=== PATIENT | male | born 1985 | race Caucasian/White ===

== ENCOUNTER 2016-09-24 16:01 | Emergency (ER) | payer OTHER ==
[~2016-09-24] VITALS: Ht 175.3 cm; Wt 117.0 kg
[~2016-09-24 16:01] MED LIST: HYDR2.5C37 TOP; OMEP20CA9 PO; RANI150T3 PO
[2016-09-24 16:04] VITALS: TEMP 36.7
[2016-09-24] MEDS ORDERED: HYDROmorphone INJ 1 MG/ML SYR IV STA (16:41)
[2016-09-24] MEDS ORDERED: SODIUM CHLORIDE 0.9% 1000ML 1,000 ML IV STA (16:41)
[2016-09-24] MEDS ORDERED: ONDANSETRON INJ 2 MG/ML 2 ML VIAL IV STA (16:41)
[2016-09-24 16:49] VITALS: Ht 175.3 cm; Wt 117.0 kg
[2016-09-24 16:52] LABS: BASO % 0.1 %; BASO ABS # 0.01 K/uL (0-0.2); COMPLETE YES; HEMATOCRIT 40.1 % (42-52); IG% 0.2 %; LYMPH % 31.4 %; LYMPH ABS # 2.57 K/uL (1.2-3.4); MEAN CELL VOLUME 88.1 fL (80-100); MEAN CORPUSCULAR HEMOGLOBIN 31.9 pg (25-34); MEAN CORPUSCULAR HGB CONC 36.2 g/dl (32-36); MONO % 6.8 %; NEUT % 60.5 %; PLATELET COUNT 214 K/uL (130-400); RED BLOOD COUNT 4.55 M/uL (4.7-6.1); WHITE BLOOD COUNT 8.18 K/uL (4.8-10.8)
[2016-09-24 17:01] LABS: BUN/CREATININE RATIO 11.8 (10-20); CALCIUM 8.6 mg/dl (8.5-10.1); CREATININE 1.1 mg/dl (0.60-1.40)
[2016-09-24 17:03] LABS: ALB/GLOB RATIO 1.2 (0.9-2)
[2016-09-24 17:09] LABS: ISTAT CREATININE 1.1 mg/dl (0.6-1.3); ISTAT HEMOGLOBIN 13.9 g/dl (14.0-18.0); ISTAT IONIZED CALCIUM 1.15 mmol/l (1.12-1.32)
[2016-09-24 17:10] VITALS: O2SAT 98
[2016-09-24] MEDS ORDERED: OPTIRAY 320 IV PRN (17:15)
--- NOTE | 2016-09-24 17:16 | EMERGENCY ROOM VISIT NOTE ---
History Report prepared by Heidy: Noa Rizzo Under the Supervision of: Dr. Luis M Lazcano M.D. First contact with patient: 16:10 Chief Complaint: SYNCOPE (NEAR SYNCOPE) Stated Complaint: HEADACHE, DIZZY, NEAR SYNCOPE Nursing Triage Summary: Pt took ibuprofen around 1500 and developed burning/tingling in b/l arms. Pt then went to the bathroom, and reports things went black and fuzzy. Pt is unsure if he passed out. He was able to call 911 but does not remember doing so. Pt also reports intermittent cramps in back. Had foot surgery in july. Denies CP. States SOB comes and goes. Stopped taking baby ASA 2 weeks ago. 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 The patient states that today he has been experiencing pulsating cramps across his upper back. He took ibuprofen for the pain. 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 He had a hot/cold sensation and states that "I could feel my heart beat in my neck." He went to the bathroom and experienced some tunnel vision and states that "everything started to go black. " The patient yelled for his daughter, who called 911. The patient states that he does not remember what happened while he was waiting for the ambulance, but he knows that he was talking to someone on the phone. He states that any movement exacerbates his back pain. He rates his pain as a 7/10. He denies any history of back problems. The patient had surgery on his left foot on 08/01/16 and is currently in a walking boot. 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 A total of 10 systems reviewed and were otherwise negative. Past Medical & Surgical Medical Problems: (1) Asthma (2) Bronchitis (3) GERD (gastroesophageal reflux disease) (4) Hemorrhoids Surgical Problems: (1) Knee surgery Family History No pertinent history stated. Social History Smoking Status: Former Smoker Alcohol Use: none Drug Use: none Marital Status: Housing Status: lives with family Occupation Status: employed Current/Historical Medications Scheduled Omeprazole (Prilosec), 20 MG PO DAILY Ranitidine Hcl (Zantac), 150 MG PO DAILY Sucralfate (Carafate), 1 GM PO TIDM Scheduled PRN Oxycodone/Acetaminophen 5MG/325MG (Percocet 5MG/325MG), 1-2 TAB PO Q4H PRN for Pain Allergies Coded Allergies: Sulfamethoxazole w/Trimethoprim (Unverified Adverse Reaction, Intermediate , Facial Flushing/Headache, 11/30/15) Pt requested never to be placed on again Uncoded Allergies: HAMPSTERS (Allergy, Unknown, severe anaphylaxis as child, 07/22/14) Physical Exam Vital Signs Date Time Temp Pulse Resp B/P Pulse Ox O2 Delivery O2 Flow Rate FiO2 09/24/16 18:26 64 17 138/78 97 09/24/16 18:00 64 17 138/78 97 Room Air 09/24/16 17:10 98 Room Air 09/24/16 17:05 70 18 127/79 98 Room Air 09/24/16 16:49 67 09/24/16 16:09 97 Room Air 09/24/16 16:09 65 130/75 79 135/85 97 140/109 09/24/16 16:04 36.7 72 18 151/79 95 Room Air Physical Exam GENERAL: Patient is a healthy-appearing well-nourished 30 year old male, hyperventilating on exam. HEAD: Normocephalic atraumatic EYES: Ocular movements intact pupils equal and react to light OROPHARYNX mucous membranes are moist no exudates present no erythema or edema present NECK: Supple no nuchal rigidity CHEST: Good equal expansion LUNGS: Clear and equal to auscultation CARDIAC: Normal S1 and S2 ABDOMEN: Soft nontender no guarding BACK: No CVA tenderness EXTREMITIES: No pain upon palpation normal muscle strength in all groups no clubbing cyanosis or edema NEURO: Patient is following commands is answering questions appropriately. Alert and oriented x3 Cranial Nerves 2-12 grossly intact Medical Decision & Procedures ER Provider Diagnostic Interpretation: Radiology results as stated below per my review and radiologist interpretation: CT ANGIOGRAM OF THE CHEST CLINICAL HISTORY: Headache and dizziness. COMPARISON STUDY: Chest x-ray dated 12/23/2014. TECHNIQUE: Following the IV administration of 105 cc of Optiray 320, CT angiogram of the chest was performed from the upper abdomen to the thoracic inlet utilizing the pulmonary embolus protocol. Images are reviewed in the axial, sagittal, and coronal planes. 3-D MIPS images are created and assessed. IV contrast was administered without complication. CT DOSE: 674.29 mGy.cm FINDINGS: Thyroid: Imaged portions of the thyroid gland are normal in size and attenuation. Thoracic aorta: The thoracic aorta is normal in caliber and demonstrates standard 3-vessel arch anatomy. No dissection is seen. Pulmonary vasculature: The pulmonary trunk is normal in caliber. There are no filling defects identified in main, lobar, or segmental pulmonary branches to suggest pulmonary embolus. Heart: The heart is normal in size and configuration, and without pericardial effusion. Lungs and pleural spaces: The lungs and pleural spaces are clear. Mediastinum: There is no mediastinal lymphadenopathy. Susie: Clear. Axillae: There is no axillary lymphadenopathy. Upper abdomen: There is a small to moderate hiatal hernia. The esophageal wall appears diffusely thickened and heterogeneous. There is mild gynecomastia. Partially visualized upper abdominal viscera is otherwise within normal limits. Skeletal structures: No lytic or blastic bony lesions are seen. IMPRESSION: 1. There is no evidence of pulmonary embolus in the main, lobar, or segmental pulmonary arteries. 2. The lungs are clear. 3. There is a small to moderate hiatal hernia and there is diffuse esophageal wall thickening. The appearance suggests esophagitis. Clinical correlation will be required. If further assessment is desired endoscopy would be appropriate. Electronically signed by: Damian Pritchard M.D. 09/24/2016 5:52 PM Dictated Date/Time: 09/24/2016 5:46 PM Laboratory Results 09/24/16 16:20 Red Blood Count 4.55, Mean Corpuscular Volume 88.1, Mean Corpuscular Hemoglobin 31.9, Mean Corpuscular Hemoglobin Concent 36.2, Mean Platelet Volume 10.0, Neutrophils (%) (Auto) 60.5, Lymphocytes (%) (Auto) 31.4, Monocytes (%) (Auto) 6.8, Eosinophils (%) (Auto) 1.0, Basophils (%) (Auto) 0.1, Neutrophils # (Auto) 4.94, Lymphocytes # (Auto) 2.57, Monocytes # (Auto) 0.56, Eosinophils # (Auto) 0.08, Basophils # (Auto) 0.01 09/24/16 16:20 Test 09/24/16 16:20 09/24/16 16:51 White Blood Count 8.18 K/uL (4.8-10.8) Red Blood Count 4.55 M/uL (4.7-6.1) Hemoglobin 14.5 g/dL (14.0-18.0) Hematocrit 40.1 % (42-52) Mean Corpuscular Volume 88.1 fL (80-100) Mean Corpuscular Hemoglobin 31.9 pg (25-34) Mean Corpuscular Hemoglobin Concent 36.2 g/dl (32-36) Platelet Count 214 K/uL (130-400) Mean Platelet Volume 10.0 fL (7.4-10.4) Neutrophils (%) (Auto) 60.5 % Lymphocytes (%) (Auto) 31.4 % Monocytes (%) (Auto) 6.8 % Eosinophils (%) (Auto) 1.0 % Basophils (%) (Auto) 0.1 % Neutrophils # (Auto) 4.94 K/uL (1.4-6.5) Lymphocytes # (Auto) 2.57 K/uL (1.2-3.4) Monocytes # (Auto) 0.56 K/uL (0.11-0.59) Eosinophils # (Auto) 0.08 K/uL (0-0.5) Basophils # (Auto) 0.01 K/uL (0-0.2) RDW Standard Deviation 40.8 fL (36.4-46.3) RDW Coefficient of Variation 12.6 % (11.5-14.5) Immature Granulocyte % (Auto) 0.2 % Immature Granulocyte # (Auto) 0.02 K/uL (0.00-0.02) Est Creatinine Clear Calc Drug Dose 123.9 ml/min Estimated GFR () 103.9 Estimated GFR (Non- 89.6 BUN/Creatinine Ratio 11.8 (10-20) Calcium Level 8.6 mg/dl (8.5-10.1) Total Bilirubin 0.3 mg/dl (0.2-1) Aspartate Amino Transf (AST/SGOT) 16 U/L (15-37) Alanine Aminotransferase (ALT/SGPT) 35 U/L (12-78) Alkaline Phosphatase 89 U/L (45-117) Total Protein 6.7 gm/dl (6.4-8.2) Albumin 3.7 gm/dl (3.4-5.0) Globulin 3.0 gm/dl (2.5-4.0) Albumin/Globulin Ratio 1.2 (0.9-2) Bedside Hemoglobin 13.9 g/dl (14.0-18.0) Bedside Hematocrit 41 % (42-52) Bedside Sodium 141 mEq/L (135-144) Bedside Potassium 3.9 mEq/L (3.3-5.0) Bedside Chloride 105 mEq/L (101-112) Bedside Total CO2 25 mEq/l (24-31) Anion Gap 17.0 mmol/L (16-25) Bedside Blood Urea Nitrogen 13 mg/dl (7-18) Bedside Creatinine 1.1 mg/dl (0.6-1.3) Bedside Glucose (other) 96 mg/dl (70-99) Bedside Ionized Calcium (Miko) 1.15 mmol/l (1.12-1.32) Labs reviewed by ED physician. Medications Administered Medications (Trade) Dose Ordered Sig/[place] Route Start Time Stop Time Status Last Admin Dose Admin Hydromorphone HCl (Dilaudid Inj) 1 mg NOW STAT IV 09/24/16 16:41 09/24/16 16:46 DC 09/24/16 16:59 1 MG Ondansetron HCl 4 mg 4 mg NOW STAT IV 09/24/16 16:41 09/24/16 16:46 DC 09/24/16 16:58 4 MG Sodium Chloride (Nss 1000ml) 1,000 ml @ 999 mls/hr Q1H1M STAT IV 09/24/16 16:41 09/24/16 17:41 DC 09/24/16 16:59 999 MLS/HR Miscellaneous Medication (Gi Cocktail) 24 ml NOW STAT PO 09/24/16 18:04 09/24/16 18:05 DC 09/24/16 18:13 24 ML Famotidine (Pepcid Tab) 20 mg NOW STAT PO 09/24/16 18:04 09/24/16 18:05 DC 09/24/16 18:12 20 MG Sucralfate (Carafate Tab) 1 gm NOW STAT PO 09/24/16 18:04 2/11/17 18:05 DC 09/24/16 18:12 1 GM Lidocaine HCl (Viscous Lidocaine 2% Soln) 20 ml STK-MED ONCE .ROUTE 09/24/16 18:08 09/24/16 18:10 DC 09/24/16 18:13 20 ML Al Hydroxide/Mg Hydroxide (Maalox Susp) 30 ml STK-MED ONCE .ROUTE 09/24/16 18:08 09/24/16 18:10 DC 09/24/16 18:13 30 ML ECG Indication: back/shoulder pain Rate (beats per minute): 71 Rhythm: normal sinus Findings: no acute ischemic change, no ectopy, other (old inferior infarct) ED Course 1610: Past medical records reviewed. The patient was evaluated in room C5. A complete history and physical examination was performed. 164: NSS 1000 ml @ 999 mls/hr IV, Zofran 4 mg IV, Dilaudid 1 mg IV 1801: I reassessed the patient and updated him on the results. 1803: Carafate tab 1 gm PO, Pepcid tab 20 mg PO, GI cocktail 24 ml PO 2030: I reassessed the patient at this time. He is feeling better and resting comfortably. I discussed the results and treatment plan with the patient. I answered all pertaining questions that he had. He expressed understanding and verbalized agreement. I offered the patient admission to the hospital, but he does not wish to stay. The patient will be discharged home. Medical Decision Differential diagnosis: Etiologies such as vasovagal event, infection, hypoglycemia, electrolyte abnormalities, cardiac sources, intracerebral event, toxicologic, neurologic, as well as others were entertained. This is a 30-year-old male who presents emergency department complaining of spasms that are occurring in his back. The patient was given Dilaudid for the pain and due to the fact that the patient is in a walking boot he was sent for a CT PE rule out. This was concerning for esophagitis. Upon reexamination and in talking further with the patient I do believe that is what the patient is suffering from. He was given a GI cocktail, Pepcid and Carafate in the emergency department repeat examination revealed improvement patient's symptoms. I strongly recommended that the patient follow-up with gastroenterology. In the meantime I recommended a clear liquid diet as well as adding Carafate to the patient's current regimen. Patient was in agreement with the treatment plan. I also had case management see this patient and attempt to get the patient with insurance as well as an with a primary care physician. Impression Primary Impression: Esophagitis Scribe Attestation The scribe's documentation has been prepared under my direction and personally reviewed by me in its entirety. I confirm that the note above accurately reflects all work, treatment, procedures, and medical decision making performed by me. Departure Information Dispostion Home / Self-Care Prescriptions Oxycodone/Acetaminophen 5MG/325MG (PERCOCET 5MG/325MG) Tab 1-2 TAB PO Q4H Y for Pain, #14 TAB Prov: Luis M Lazcano MD 09/24/16 Sucralfate (CARAFATE) 1 Gm Tab 1 GM PO TIDM, #30 TAB Prov: Luis M Lazcano MD 09/24/16 Referrals No Doctor, Assigned (PCP) Vladimir Soria D.O. [facility] Forms HOME CARE DOCUMENTATION FORM, IMPORTANT VISIT INFORMATION, School Instructions, Work Instructions Patient Instructions Esophagitis, My [facility] Additional Instructions Need follow up with Dr Soria's office Clear liquid diet next 48 hours Take carafate before every meal and at bedtime You have been examined and treated today on an emergency basis only. This is not a substitute for, or an effort to provide, complete comprehensive medical care. It is impossible to recognize and treat all injuries or illnesses in a single emergency department visit. It is therefore important that you follow up closely with your PCP. Call as soon as possible for an appointment. Thank you for your time and consideration. I look forward to speaking with you again soon. Please don't hesitate to call us if you have any questions.
--- NOTE | 2016-09-24 17:53 | DIAGNOSTIC IMAGING REPORT ---
CT ANGIOGRAM OF THE CHEST CLINICAL HISTORY: Headache and dizziness. COMPARISON STUDY: Chest x-ray dated 12/23/2014. TECHNIQUE: Following the IV administration of 105 cc of Optiray 320, CT angiogram of the chest was performed from the upper abdomen to the thoracic inlet utilizing the pulmonary embolus protocol. Images are reviewed in the axial, sagittal, and coronal planes. 3-D MIPS images are created and assessed. IV contrast was administered without complication. CT DOSE: 674.29 mGy.cm FINDINGS: Thyroid: Imaged portions of the thyroid gland are normal in size and attenuation. Thoracic aorta: The thoracic aorta is normal in caliber and demonstrates standard 3-vessel arch anatomy. No dissection is seen. Pulmonary vasculature: The pulmonary trunk is normal in caliber. There are no filling defects identified in main, lobar, or segmental pulmonary branches to suggest pulmonary embolus. Heart: The heart is normal in size and configuration, and without pericardial effusion. Lungs and pleural spaces: The lungs and pleural spaces are clear. Mediastinum: There is no mediastinal lymphadenopathy. Susie: Clear. Axillae: There is no axillary lymphadenopathy. Upper abdomen: There is a small to moderate hiatal hernia. The esophageal wall appears diffusely thickened and heterogeneous. There is mild gynecomastia. Partially visualized upper abdominal viscera is otherwise within normal limits. Skeletal structures: No lytic or blastic bony lesions are seen. IMPRESSION: 1. There is no evidence of pulmonary embolus in the main, lobar, or segmental pulmonary arteries. 2. The lungs are clear. 3. There is a small to moderate hiatal hernia and there is diffuse esophageal wall thickening. The appearance suggests esophagitis. Clinical correlation will be required. If further assessment is desired endoscopy would be appropriate. Electronically signed by: Damian Pritchard M.D. 09/24/2016 5:52 PM Dictated Date/Time: 09/24/2016 5:46 PM
[2016-09-24] MEDS ORDERED: GI COCKTAIL PO STA (18:04)
[2016-09-24] MEDS ORDERED: SUCRALFATE 1 GM TAB PO STA (18:04)
[2016-09-24] MEDS ORDERED: FAMOTIDINE 20 MG TAB PO STA (18:04)
[2016-09-24] MEDS ORDERED: ALUMINUM/MAGNESIUM SUSP 30 ML UDC ONE (18:08)
[2016-09-24] MEDS ORDERED: LIDOCAINE HCL 2% VISC SOLN 20 ML UDC ONE (18:08)
[2016-09-24] MEDS ORDERED: OXYC-57 PO (18:11)
[2016-09-24] MEDS ORDERED: SUCR1TAB29 PO (18:11)
[2016-09-24 18:26] VITALS: BP 138/78; PULSE 64; O2SAT 97
== END 2016-09-24 18:27 | disposition home or self-care (01) ==
LOC: EDBD 16:01 → C.EDC 16:03
DX: K20.9 Esophagitis, unspecified (principal); J45.909 Unspecified asthma, uncomplicated; K21.9 Gastro-esophageal reflux disease without esophagitis; K64.9 Unspecified hemorrhoids; Z87.891 Personal history of nicotine dependence; Z79.899 Other long term (current) drug therapy

== ENCOUNTER 2016-10-02 18:24 | Emergency (ER) | payer OTHER ==
[~2016-10-02] VITALS: Ht 175.3 cm; Wt 118.2 kg
[~2016-10-02 18:24] MED LIST changes: -HYDR2.5C37 TOP; +OXYC-57 PO; +SUCR1TAB29 PO
[2016-10-02 18:54] VITALS: TEMP 37.5; Ht 175.3 cm; Wt 118.2 kg
[2016-10-02] MEDS ORDERED: IBUP-1050 PO (19:42)
[2016-10-02] MEDS ORDERED: AMOX500C3 PO (20:30)
[2016-10-02] MEDS ORDERED: CLAR500T3 PO (20:30)
--- NOTE | 2016-10-02 20:33 | EMERGENCY ROOM VISIT NOTE ---
History Report prepared by Heidy: Noa Rizzo Under the Supervision of: Dr. Luis M Lazcano M.D. First contact with patient: 19:22 Chief Complaint: DIZZY Stated Complaint: LIGHTHEADED,TIGHT CHEST,NUMBNESS Nursing Triage Summary: Patient reports headache and dizziness that began today. States that he took ibuprofen at home for the pain, but it is not helping. Reports that his arms felt tight earlier today and then he developed CP across the anterior chest. Pain is relieved now. Had migraines as a child. 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 The patient was seen in the ED last week and was started on Carafate for esophagitis at that time. He stopped taking this medication yesterday because he felt that it was not helping. He is currently taking Prilosec. He has been afraid to eat because he keeps choking. The patient has started smoking cigarettes again today in an attempt to stop chewing tobacco. He has not smoked cigarettes from some time. He ate lunch around 12:30 this afternoon and was sitting around watching movies with his family today. He started to feel unwell around 5pm. He developed a throbbing headache and took ibuprofen at 5pm. About an hour later his pain worsened and he began feeling dizzy and lightheaded. He also developed arm heaviness. His significant other states that he became diaphoretic and warm to the touch. The patient denies any LOC. He states that his symptoms have improved with sitting still in the ED. He rates his pain as a 10/10. 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 A total of 10 systems reviewed and were otherwise negative. Past Medical & Surgical Medical Problems: (1) Asthma (2) Bronchitis (3) GERD (gastroesophageal reflux disease) (4) Hemorrhoids Surgical Problems: (1) Knee surgery Family History Cancer Heart disease Social History Smoking Status: Current Every Day Smoker Smokeless Tobacco Use: Yes Alcohol Use: none Drug Use: none Marital Status: Housing Status: lives with family Occupation Status: employed Current/Historical Medications Scheduled Amoxicillin (Amoxil), 500 MG PO TID Clarithromycin (Biaxin), 1 TAB PO BID Ibuprofen (Advil), 200-600 MG PO Q4H Omeprazole (Prilosec), 20 MG PO DAILY Ranitidine Hcl (Zantac), 150 MG PO DAILY Sucralfate (Carafate), 1 GM PO TIDM Scheduled PRN Oxycodone/Acetaminophen 5MG/325MG (Percocet 5MG/325MG), 1-2 TAB PO Q4H PRN for Pain Allergies Coded Allergies: Sulfamethoxazole w/Trimethoprim (Unverified Adverse Reaction, Intermediate , Facial Flushing/Headache, 10/02/16) Pt requested never to be placed on again Uncoded Allergies: HAMPSTERS (Allergy, Unknown, severe anaphylaxis as child, 07/22/14) Physical Exam Vital Signs Date Time Temp Pulse Resp B/P Pulse Ox O2 Delivery O2 Flow Rate FiO2 10/02/16 20:37 64 18 138/74 96 Room Air 10/02/16 20:04 66 10/02/16 18:54 37.5 66 20 140/91 96 Room Air Physical Exam GENERAL: Patient is a healthy-appearing well-nourished 30 year old male. HEAD: Normocephalic atraumatic EYES: Ocular movements intact pupils equal and react to light OROPHARYNX mucous membranes are moist no exudates present no erythema or edema present NECK: Supple no nuchal rigidity CHEST: Good equal expansion LUNGS: Clear and equal to auscultation CARDIAC: Normal S1 and S2 ABDOMEN: Soft nontender no guarding BACK: No CVA tenderness EXTREMITIES: No pain upon palpation normal muscle strength in all groups no clubbing cyanosis or edema NEURO: Patient is following commands is answering questions appropriately. Alert and oriented x3 Cranial Nerves 2-12 grossly intact Medical Decision & Procedures ED Course 2001: Past medical records reviewed. The patient was evaluated in room B3B. A complete history and physical examination was performed. At this time I discussed the results and treatment plan with the patient. I answered all pertaining questions that he had. He expressed understanding and verbalized agreement. The patient will be discharged home. Medical Decision Differential diagnosis: Etiologies such as vasovagal event, infection, hypoglycemia, electrolyte abnormalities, cardiac sources, intracerebral event, toxicologic, neurologic, as well as others were entertained. This is a 30-year-old male who returns to the emergency department one week after I originally saw him. At that time the patient's CAT scan performed which was concerning for esophagitis. The patient still has not been able to follow-up with [facility] to see a software test technician. He reports that he stopped taking his Carafate several days ago. The patient has continued to smoke and I believe this is contribute to his symptoms. The patient appears to had an anxiety attack in addition to his reflux continuing to bother him. He has a benign abdominal examination and the patient is refusing IV and laboratory work. I'm going to try the patient on amoxicillin as well as clarithromycin to try and prevent an H. pylori infection. I also stressed to the patient to stop smoking. I stressed the need for follow-up gastroenterology recommended a clear liquid diet for the next 48 hours. Patient was in agreement with the treatment plan. Impression Primary Impression: Esophagitis Scribe Attestation The scribe's documentation has been prepared under my direction and personally reviewed by me in its entirety. I confirm that the note above accurately reflects all work, treatment, procedures, and medical decision making performed by me. Departure Information Dispostion Home / Self-Care Prescriptions Clarithromycin (BIAXIN) 500 Mg Tab 1 TAB PO BID for 10 Days, #20 TAB Prov: Luis M Lazcano MD 10/02/16 Amoxicillin (AMOXIL) 500 Mg Cap 500 MG PO TID for 10 Days, #30 CAP Prov: Luis M Lazcano MD 10/02/16 [facility] Forms HOME CARE DOCUMENTATION FORM, IMPORTANT VISIT INFORMATION Patient Instructions My [facility] Additional Instructions Take 5 ml Maalox before every meal and at bedtime Follow up with Dr Inman's office You have been examined and treated today on an emergency basis only. This is not a substitute for, or an effort to provide, complete comprehensive medical care. It is impossible to recognize and treat all injuries or illnesses in a single emergency department visit. It is therefore important that you follow up closely with [facility]. Call as soon as possible for an appointment. Thank you for your time and consideration. I look forward to speaking with you again soon. Please don't hesitate to call us if you have any questions.
[2016-10-02 20:37] VITALS: BP 138/74; PULSE 64; O2SAT 96
== END 2016-10-02 20:42 | disposition home or self-care (01) ==
LOC: C.EDB 18:25
DX: K21.0 Gastro-esophageal reflux disease with esophagitis (principal); F41.9 Anxiety disorder, unspecified; F17.210 Nicotine dependence, cigarettes, uncomplicated; F17.220 Nicotine dependence, chewing tobacco, uncomplicated; Z88.2 Allergy status to sulfonamides; Z79.1 Long term (current) use of non-steroidal anti-inflammatories (NSAID); Z79.899 Other long term (current) drug therapy; Z82.49 Family history of ischemic heart disease and other diseases of the circulatory system

== ENCOUNTER 2017-02-16 02:35 | Emergency (ER) | payer OTHER ==
[~2017-02-16] VITALS: Ht 175.3 cm; Wt 110.7 kg
[~2017-02-16 02:35] MED LIST changes: +IBUP-1050 PO; -SUCR1TAB29 PO
[2017-02-16 02:39] VITALS: TEMP 36.4; Ht 175.3 cm; Wt 110.7 kg
[2017-02-16] MEDS ORDERED: KETOROLAC TROMETHAMINE 30 MG/ML VIAL IV STA (02:57)
[2017-02-16] MEDS ORDERED: ONDANSETRON INJ 2 MG/ML 2 ML VIAL IV STA (02:57)
--- NOTE | 2017-02-16 03:03 | EMERGENCY ROOM VISIT NOTE ---
History Report prepared by Heidy: Dirk Mendes Under the Supervision of: Dr. Maria C Pena D.O. First contact with patient: 02:43 Chief Complaint: HEADACHE Stated Complaint: REAL BAD HEAD PAIN History of Present Illness The patient is a 31 year old male who presents to the Emergency Room with complaints of a constant and severe headache that began tonight at 2200, 5 hours prior to arrival. The patient's headache is worsened with both light and noise. He states that his headache is causing him to feel shaky, weak, and nauseated. He states that he has taken 1000 mg of Aspirin this evening with no relief. The patient did have migraines intermittently as a child, but notes that he has not had a headache this severe in many years. He denies any trauma or falls recently. He also took Zantac before bed. 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 A total of 10 systems reviewed and were otherwise negative. Past Medical & Surgical Medical Problems: (1) Asthma (2) Bronchitis (3) GERD (gastroesophageal reflux disease) (4) Hemorrhoids Surgical Problems: (1) Knee surgery Family History Cancer Heart disease Social History Smoking Status: Current Every Day Smoker Alcohol Use: none Drug Use: none Marital Status: Housing Status: lives with family Occupation Status: employed Current/Historical Medications Scheduled Omeprazole (Prilosec), 40 MG PO QAM Ranitidine Hcl (Zantac), 150 MG PO HS Sertraline (Zoloft), 50 MG PO QAM Scheduled PRN Acetaminophen (Tylenol), 1,000 MG PO DIRECTED PRN for Pain Ibuprofen (Advil), 200-600 MG PO Q4H PRN for Pain Allergies Coded Allergies: Sulfamethoxazole w/Trimethoprim (Verified Adverse Reaction, Intermediate, Facial Flushing/Headache, 02/16/17) Pt requested never to be placed on again Uncoded Allergies: HAMPSTERS (Allergy, Unknown, severe anaphylaxis as child, 07/22/14) Physical Exam Vital Signs Date Time Temp Pulse Resp B/P (MAP) Pulse Ox O2 Delivery O2 Flow Rate FiO2 02/16/17 04:34 76 16 127/71 98 02/16/17 02:39 36.4 71 18 145/91 98 Room Air Physical Exam HEENT: Head - normocephalic and atraumatic. Pupils are equal, round, and reactive to light. Extraocular eye muscles are intact and sclera are anicteric. Ears - bilaterally patent canals with noninjected tympanic membranes and no evidence of hemotympanum. Nose - moist nasal mucosa without discharge. Mouth - moist buccal mucosa. Oropharynx is nonerythematous and there is no tonsillar exudate or edema noted. Patient has photophobia and phonophobia, worsening his headache. Neck: Supple; no JVD, nuchal rigidity, cervical lymphadenopathy. Heart: Regular rate and rhythm. There is a normal S1 and S2 with no murmurs, clicks, or gallops appreciated. Lungs: Clear to auscultation bilaterally with no wheezes, rales, or rhonchi. Abdomen: Soft, completely nontender, nondistended, with good bowel sounds. There are no palpable pulsatile masses or hepatosplenomegaly. There is no guarding, rigidity, or rebound noted. Extremities: No evidence of cyanosis, clubbing, or edema. There are easily palpable peripheral pulses. Neuro:The patient is awake and alert, oriented to day, time, and place. Muscle strength is 5/5 in all 4 extremities. The patient has equal director video strength and equal pedal push and pull. There are no cerebellar signs. Cranial nerves II- XII intact. Medical Decision & Procedures ER Provider Diagnostic Interpretation: Radiology results as stated below per my review and the radiologist's interpretation: CT HEAD: No evidence of acute intracranial abnormality. Radiologist: Keeley Ventura MD Laboratory Results 02/16/17 03:20 Red Blood Count 4.77, Mean Corpuscular Volume 89.7, Mean Corpuscular Hemoglobin 31.0, Mean Corpuscular Hemoglobin Concent 34.6, Mean Platelet Volume 9.9, Neutrophils (%) (Auto) 65.5, Lymphocytes (%) (Auto) 25.3, Monocytes (%) (Auto) 7.1, Eosinophils (%) (Auto) 1.6, Basophils (%) (Auto) 0.3, Neutrophils # (Auto) 7.21, Lymphocytes # (Auto) 2.79, Monocytes # (Auto) 0.78, Eosinophils # (Auto) 0.18, Basophils # (Auto) 0.03 02/16/17 03:20 Test 02/16/17 03:20 White Blood Count 11.01 K/uL (4.8-10.8) Red Blood Count 4.77 M/uL (4.7-6.1) Hemoglobin 14.8 g/dL (14.0-18.0) Hematocrit 42.8 % (42-52) Mean Corpuscular Volume 89.7 fL (80-100) Mean Corpuscular Hemoglobin 31.0 pg (25-34) Mean Corpuscular Hemoglobin Concent 34.6 g/dl (32-36) Platelet Count 223 K/uL (130-400) Mean Platelet Volume 9.9 fL (7.4-10.4) Neutrophils (%) (Auto) 65.5 % Lymphocytes (%) (Auto) 25.3 % Monocytes (%) (Auto) 7.1 % Eosinophils (%) (Auto) 1.6 % Basophils (%) (Auto) 0.3 % Neutrophils # (Auto) 7.21 K/uL (1.4-6.5) Lymphocytes # (Auto) 2.79 K/uL (1.2-3.4) Monocytes # (Auto) 0.78 K/uL (0.11-0.59) Eosinophils # (Auto) 0.18 K/uL (0-0.5) Basophils # (Auto) 0.03 K/uL (0-0.2) RDW Standard Deviation 42.2 fL (36.4-46.3) RDW Coefficient of Variation 12.9 % (11.5-14.5) Immature Granulocyte % (Auto) 0.2 % Immature Granulocyte # (Auto) 0.02 K/uL (0.00-0.02) Anion Gap 7.0 mmol/L (3-11) Est Creatinine Clear Calc Drug Dose 135.3 ml/min Estimated GFR () 120.1 Estimated GFR (Non- 103.6 BUN/Creatinine Ratio 12.9 (10-20) Calcium Level 8.6 mg/dl (8.5-10.1) Laboratory results per my review. Medications Administered Medications (Trade) Dose Ordered Sig/[place] Route Start Time Stop Time Status Last Admin Dose Admin Ondansetron HCl (Zofran Inj) 4 mg NOW STAT IV 02/16/17 02:57 7/6/17 03:00 DC 02/16/17 03:28 4 MG Ketorolac Tromethamine (Toradol Inj) 30 mg NOW STAT IV 02/16/17 02:57 02/16/17 03:00 DC 02/16/17 03:29 30 MG Procedure Medications Ordered: Toradol, Zofran ED Course 0247: Past medical records reviewed. The patient was evaluated in room A2. A complete history and physical exam was performed. An IV lock was initiated and labs are drawn as above. 0257: Ordered Toradol 30 mg IV, Zofran 4 mg IV. 0425: I reevaluated the patient at this time. He is feeling much better and is ready to go home. I discussed findings and results with him. He verbalized agreement of the treatment plan. The patient was discharged home. Medical Decision Blood Pressure Screening: Patient was found to have a slightly elevated blood pressure due to circumstances. I do not believe that the patient requires hypertension monitoring. I attest that I have personally reviewed the patient's current medication list. The patient is a 31 year old male who presents to the Emergency Department for a headache. Differentia Diagnosis include; Intracranial hemorrhage, intracranial mass, meningitis, tension headache, migraine, dehydration. Laboratory studies were reviewed and show; WBC of 11, normal hemoglobin and hematocrit, BUN of 13, creatinine of 0.9, and glucose of 11. The patient has a history of migraines when he was much younger. This headache presented quickly this evening. He had no other significant associated symptoms. CT scan of brain was unremarkable. He had moderate relief of the symptoms with the above medications. Impression Primary Impression: Headache Scribe Attestation The scribe's documentation has been prepared under my direction and personally reviewed by me in its entirety. I confirm that the note above accurately reflects all work, treatment, procedures, and medical decision making performed by me. Departure Information Dispostion Home / Self-Care Referrals No Doctor, Assigned (PCP) Patient Instructions My [facility] Problem Qualifiers Primary Impression: Headache Headache type: unspecified Headache chronicity pattern: acute headache Intractability: not intractable Qualified Codes: R51 - Headache
[2017-02-16] MEDS ORDERED: OMEP40CA41 PO (03:05)
[2017-02-16] MEDS ORDERED: ACET-1256 PO (03:05)
[2017-02-16] MEDS ORDERED: SERT50TA PO (03:05)
[2017-02-16 03:35] LABS: BASO % 0.3 %; BASO ABS # 0.03 K/uL (0-0.2); COMPLETE YES; EOS % 1.6 %; HEMATOCRIT 42.8 % (42-52); IG% 0.2 %; LYMPH % 25.3 %; LYMPH ABS # 2.79 K/uL (1.2-3.4); MEAN CELL VOLUME 89.7 fL (80-100); MEAN CORPUSCULAR HGB CONC 34.6 g/dl (32-36); MEAN PLATELET VOLUME 9.9 fL (7.4-10.4); MONO % 7.1 %; NEUT % 65.5 %; PLATELET COUNT 223 K/uL (130-400); RED BLOOD COUNT 4.77 M/uL (4.7-6.1); WHITE BLOOD COUNT 11.01 K/uL (4.8-10.8)
[2017-02-16 03:53] LABS: BUN/CREATININE RATIO 12.9 (10-20); CALCIUM 8.6 mg/dl (8.5-10.1); CREATININE 0.97 mg/dl (0.60-1.40); POTASSIUM 3.5 mmol/L (3.5-5.1)
[2017-02-16 04:34] VITALS: BP 127/71; PULSE 76; O2SAT 98
--- NOTE | 2017-02-16 06:28 | DIAGNOSTIC IMAGING REPORT ---
HEAD CT NONCONTRAST CT DOSE: 537.48 mGy.cm HISTORY: Headache severe head pain TECHNIQUE: Multiaxial CT images of the head were performed without the use of intravenous contrast. Comparison: None. Findings: The paranasal sinuses and mastoid air cells are clear. The calvarium and skull base are intact. The ventricles and sulci are within normal limits. There is no mass, hematoma, midline shift, or acute infarct. Impression: No acute intracranial abnormality. Electronically signed by: Marvin Wu M.D. 02/16/2017 6:27 AM Dictated Date/Time: 02/16/2017 6:26 AM
== END 2017-02-16 04:35 | disposition home or self-care (01) ==
LOC: C.EDB 02:36 → C.EDA 04:35
DX: R51 Headache (principal); K21.9 Gastro-esophageal reflux disease without esophagitis; J45.909 Unspecified asthma, uncomplicated; F17.200 Nicotine dependence, unspecified, uncomplicated; Z79.899 Other long term (current) drug therapy; Z98.890 Other specified postprocedural states; Z88.2 Allergy status to sulfonamides; Z80.9 Family history of malignant neoplasm, unspecified; Z82.49 Family history of ischemic heart disease and other diseases of the circulatory system

== ENCOUNTER 2017-08-22 09:16 | Emergency (ER) | payer OTHER ==
[~2017-08-22] VITALS: Ht 175.3 cm; Wt 113.0 kg
[~2017-08-22 09:16] MED LIST changes: +ACET-1256 PO; -OMEP20CA9 PO; +OMEP40CA41 PO; -OXYC-57 PO; +SERT50TA PO
[2017-08-22 09:19] VITALS: BP 135/93; PULSE 71; TEMP 36.8; O2SAT 98; Ht 175.3 cm; Wt 113.0 kg
--- NOTE | 2017-08-22 09:49 | DIAGNOSTIC IMAGING REPORT ---
RIGHT KNEE 3 VIEWS HISTORY: right knee pain COMPARISON: Right knee 04/05/2006. FINDINGS: No acute fracture or dislocation. Trace knee effusion. Prior ACL repair. Soft tissues are unremarkable. No radiopaque foreign bodies. IMPRESSION: 1. Trace knee effusion. 2. No acute fracture or dislocation within the right knee. Electronically signed by: Rakesh Elder M.D. 08/22/2017 9:47 AM Dictated Date/Time: 08/22/2017 9:46 AM
[2017-08-22] MEDS ORDERED: ATOR-22 PO (10:06)
[2017-08-22] MEDS ORDERED: BUPR-79 PO (10:06)
--- NOTE | 2017-08-22 15:01 | EMERGENCY ROOM VISIT NOTE ---
History Report prepared by Heidy: Zach Garcia Under the Supervision of: Dr. Farooq Swift D.O. First contact with patient: 09:26 Chief Complaint: KNEEPAIN Stated Complaint: RIGHT KNEE PAIN History of Present Illness The patient is a 31 year old male who presents to the Emergency Room with complaints of persistent right knee pain that started last night after a fall. 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 He says that he then went to grab his digging bar, and turned around, and ended up falling and sliding down the snowy hill. The patient says that ever since the accident, he has been unable to put pressure on his right knee due to pain. He adds that he has had episodes of numbness and tingling around the area. He denies any hits to his head, or any right hip or ankle pain. Source of History: patient Onset: Last night Position: knee (right) Symptom Intensity: cannot put pressure on knee Quality: other (after fall) Timing: other (persistent) Associated Symptoms: + numbness (and tingling episodes right knee) Note: Denies right hip or ankle pain. Review of Systems See HPI for pertinent positives & negatives. A total of 10 systems reviewed and were otherwise negative. Past Medical & Surgical Medical Problems: (1) Asthma (2) Bronchitis (3) GERD (gastroesophageal reflux disease) (4) Hemorrhoids Surgical Problems: (1) Knee surgery Family History Cancer Heart disease Social History Smoking Status: Current Every Day Smoker Alcohol Use: none Drug Use: none Marital Status: Housing Status: lives with family Occupation Status: employed Current/Historical Medications Scheduled Atorvastatin (Lipitor), 20 MG PO QPM Bupropion (Wellbutrin Sr), 150 MG PO BID Omeprazole (Prilosec), 40 MG PO QAM Ranitidine Hcl (Zantac), 150 MG PO HS Sertraline (Zoloft), 50 MG PO QAM Scheduled PRN Acetaminophen (Tylenol), 1,000 MG PO DIRECTED PRN for Pain Ibuprofen (Advil), 200-600 MG PO Q4H PRN for Pain Allergies Coded Allergies: Sulfamethoxazole w/Trimethoprim (Verified Adverse Reaction, Intermediate, Facial Flushing/Headache, 08/22/17) Pt requested never to be placed on again Uncoded Allergies: HAMPSTERS (Allergy, Unknown, severe anaphylaxis as child, 07/22/14) Physical Exam Vital Signs Date Time Temp Pulse Resp B/P (MAP) Pulse Ox O2 Delivery O2 Flow Rate FiO2 08/22/17 09:19 36.8 71 18 135/93 98 Room Air Physical Exam GENERAL: Sitting up in bed, holding right knee, in minimal distress EYE EXAM: normal conjunctiva. HEAD: normocephalic atraumatic OROPHARYNX: no exudate, no erythema, lips, buccal mucosa, and tongue normal and mucous membranes are moist NECK: supple, no nuchal rigidity, no adenopathy, non-tender LUNGS: Clear to auscultation. Normal chest wall mechanics HEART: no murmurs, S1 normal and S2 normal ABDOMEN: abdomen soft, non-tender, normo-active bowel sounds, no masses, no rebound or guarding. UPPER EXTREMITIES: upper extremities are grossly normal. LOWER EXTREMITIES: Range of motion of right knee without tenderness. Right knee with moderate tenderness with flexion beyond 30 degrees, with a small prepatellar effusion. Tenderness throughout calf, ankle and foot. DP 2/4, gross sensations intact. NEURO EXAM: Normal sensorium, cranial nerves II-XII grossly intact. Medical Decision & Procedures ER Provider Diagnostic Interpretation: X-ray results as stated below per my review and the radiologist's interpretation : RIGHT KNEE 3 VIEWS HISTORY: right knee pain COMPARISON: Right knee 04/05/2006. FINDINGS: No acute fracture or dislocation. Trace knee effusion. Prior ACL repair. Soft tissues are unremarkable. No radiopaque foreign bodies. IMPRESSION: 1. Trace knee effusion. 2. No acute fracture or dislocation within the right knee. Electronically signed by: Rakesh Elder M.D. 08/22/2017 9:47 AM Dictated Date/Time: 08/22/2017 9:46 AM ED Course ED COURSE: Vital signs were reviewed and showed normal vitals. The patients medical record was reviewed The above diagnostic studies were performed and reviewed. ED treatments and interventions as stated above. 0927: The patient was evaluated in room C3. A complete history and physical examination was performed. 1040: Upon reevaluation, the patient is resting. I discussed my findings with the patient and he understands and agrees with the treatment plan. Based on the patients age, coexisting illnesses, exam and lab findings the decision to treat as an outpatient was made. The patient remained stable while under my care. The patient appeared well at the time of discharge. Medical Decision Differential diagnoses include major intracranial, cervical, spinal, thoracic, abdominal, pelvic and neurologic injury. Fracture, contusion, sprain, strain, laceration, abrasions included as well. Patient is a 31-year-old male who presents to ER following rolling his right knee last night. He is having severe pain in the right knee. X-rays of the right knee show no obvious fractures. Patient is neurologically intact. Vascularly intact. Patient has no other complaints. Instructed patient at the bear any weight in the follow-up with PCP for repeat x-rays if he still has pain in the next 3-5 days. Discussed with Pt concerning signs and symptoms to watch out for. Pt was instructed to follow up with their PCP and discussed with the patient their option to return to the ED at anytime for persistent or worsening symptoms. The appropriate anticipatory guidance and out-patient management, including indications for return to the emergency department, were explained at length to the patient and understood. Medication Reconcilliation Current Medication List: was personally reviewed by me Blood Pressure Screening Patient's blood pressure: Normal blood pressure Impression Primary Impression: Sprain of knee Scribe Attestation The scribe's documentation has been prepared under my direction and personally reviewed by me in its entirety. I confirm that the note above accurately reflects all work, treatment, procedures, and medical decision making performed by me. Departure Information Dispostion Home / Self-Care Referrals No Doctor, Assigned (PCP) Patient Instructions ED Sprain Knee, My [facility] Additional Instructions Please follow up with your primary care doctor with in the next 24 hours. Any worsening of your symptoms, please return to the ED immediately. This includes any fevers greater than 100.4, worsening pain, unable and bili, unable to bend, numbness or weakness or any other concerning signs or symptoms from your standpoint. If you continue to have pain over the next 3-5 days he will need repeat x-rays. Do not bear weight until pain resolves. Use crutches as prescribed. Please use Tylenol or Motrin as needed for pain. These follow-up with orthopedics as directed Problem Qualifiers Primary Impression: Sprain of knee Encounter type: initial encounter Involved ligament of knee: unspecified ligament Laterality: right Qualified Codes: S83.91XA - Sprain of unspecified site of right knee, initial encounter
== END 2017-08-22 11:24 | disposition home or self-care (01) ==
LOC: C.EDB 09:17 → C.EDC 11:24
DX: S83.91XA Sprain of unspecified site of right knee, initial encounter (principal); W19.XXXA Unspecified fall, initial encounter; J45.909 Unspecified asthma, uncomplicated; K21.9 Gastro-esophageal reflux disease without esophagitis; F17.200 Nicotine dependence, unspecified, uncomplicated; Z98.890 Other specified postprocedural states; Z79.899 Other long term (current) drug therapy; Z88.2 Allergy status to sulfonamides; Z80.9 Family history of malignant neoplasm, unspecified; Z82.49 Family history of ischemic heart disease and other diseases of the circulatory system

== ENCOUNTER 2017-12-20 03:06 | Emergency (ER) | payer OTHER ==
[~2017-12-20] VITALS: Ht 175.3 cm; Wt 122.7 kg
[~2017-12-20 03:06] MED LIST changes: +ATOR-22 PO; +BUPR-79 PO
[2017-12-20 03:11] VITALS: TEMP 36.4; Ht 175.3 cm; Wt 122.7 kg
[2017-12-20] MEDS ORDERED: SODIUM CHLORIDE 0.9% 1000ML 1,000 ML IV STA (03:24)
[2017-12-20] MEDS ORDERED: METOCLOPRAMIDE HCL INJ 5 MG/ML 2 ML VIAL IV STA (03:24)
[2017-12-20] MEDS ORDERED: DiphenhydrAMINE HCL 50 MG/ML VIAL IV STA ×2 (03:24→04:02)
[2017-12-20] MEDS ORDERED: KETOROLAC TROMETHAMINE 30 MG/ML VIAL IV STA (04:02)
--- NOTE | 2017-12-20 04:37 | EMERGENCY ROOM VISIT NOTE ---
History First contact with patient: 03:10 Chief Complaint: HEADACHE Stated Complaint: MIGRAINE,VOMITING,2000MG TYLENOL History of Present Illness The patient is a 32 year old male who presents to the Emergency Room with complaints of headache for the past several hours described as throbbing, ranging in severity currently 7 out of 10 throughout the occipital region similar to prior. Patient complains of nausea and vomiting. Patient took 1 g of Tylenol 2 tonight. Normal imaging in the past. Patient denies chest pain, dyspnea, fever, chills, cold symptoms, numbness, tingling, localized weakness, vision problems, balance problems. No injury. No other complaints per patient. He does smoke. No drugs. Review of Systems An 10 system review of systems was completed with positives and pertinent negatives listed in the HPI. Past Medical/Surgical History Medical Problems: (1) Asthma (2) Bronchitis (3) GERD (gastroesophageal reflux disease) (4) Hemorrhoids Surgical Problems: (1) Knee surgery Family History Cancer Heart disease Social History Smoking Status: Current Every Day Smoker Alcohol Use: none Drug Use: none Marital Status: Housing Status: lives with family Occupation Status: employed Current/Historical Medications Scheduled Atorvastatin (Lipitor), 20 MG PO QPM Bupropion (Wellbutrin Sr), 150 MG PO BID Omeprazole (Prilosec), 40 MG PO QAM Ranitidine Hcl (Zantac), 150 MG PO HS Sertraline (Zoloft), 50 MG PO QAM Scheduled PRN Acetaminophen (Tylenol), 1,000 MG PO DIRECTED PRN for Pain Physical Exam Vital Signs Date Time Temp Pulse Resp B/P (MAP) Pulse Ox O2 Delivery O2 Flow Rate FiO2 12/20/17 03:39 56 16 137/69 96 Room Air 12/20/17 03:11 36.4 59 20 153/99 97 Room Air Physical Exam VITALS: Vitals are noted on the nurse's note and reviewed by myself. Vital signs hypertensive. GENERAL: Pleasant male, in no acute distress, nondiaphoretic, well-developed well-nourished. SKIN: The skin was without rashes, erythema, edema, or bruising. There is no tenting of the skin. Capillary reflex less than 2 seconds. HEAD: Normocephalic atraumatic. EARS: External auditory canals clear, tympanic membranes pearly marsh without erythema or effusion bilaterally. EYES: Pupils equal round and reactive to light and accommodation. Conjunctivae without injection, sclerae without icterus. Extraocular movements intact. NOSE: Patent, turbinates without inflammation or discharge. No sinus tenderness. MOUTH: Mucous membranes moist. Pharynx without erythema or exudate. Uvula midline. Airway patent. Tongue does not deviate. NECK: Supple without nuchal rigidity. No lymphadenopathy. No thyromegaly. Cervical spine is nontender. No JVD. HEART: Regular rate and rhythm without murmurs gallops or rubs. LUNGS: Clear to auscultation bilaterally without wheezes, rales or rhonchi. No retractions or accessory muscle use. ABDOMEN: Positive bowel sounds x 4. Normal tympanic percussion. Soft, nontender, without masses or organomegaly. Long sign negative. No guarding or rebound tenderness. No CVA tenderness MUSCULOSKELETAL: No muscle atrophy, erythema, or edema noted. NEURO: Patient was alert and oriented to person place and time. Normal sensation to light and sharp touch. No focal neurological deficits. Cranial nerves II through XII grossly intact. No prior drift. Cerebellar exam intact. Medical Decision & Procedures Medications Administered Medications (Trade) Dose Ordered Sig/[place] Route Start Time Stop Time Status Last Admin Dose Admin Metoclopramide HCl (Reglan Inj) 10 mg NOW STAT IV 12/20/17 03:24 12/20/17 03:25 DC 12/20/17 03:30 10 MG Diphenhydramine HCl (Benadryl Inj) 25 mg NOW STAT IV 12/20/17 03:24 12/20/17 03:25 DC 12/20/17 03:30 25 MG Sodium Chloride 1,000 ml @ 999 mls/hr Q1H1M STAT IV 12/20/17 03:24 12/20/17 04:24 DC 12/20/17 03:35 999 MLS/HR Ketorolac Tromethamine (Toradol Inj) 10 mg NOW STAT IV 12/20/17 04:02 12/20/17 04:03 DC 12/20/17 04:14 10 MG Diphenhydramine HCl (Benadryl Inj) 50 mg NOW STAT IV 12/20/17 04:02 12/20/17 04:03 DC 12/20/17 04:13 50 MG ED Course Prior records/ancillary studies reviewed. Additional history obtained from family. Triage Nursing notes reviewed. The patient's history was concerning for headache. Differential diagnosis: Etiologies such as migraine headache, meningitis, sinusitis, CO exposure, ICH, SAH, infection, tumor, headache, sinus thrombosis, arterial dissection, as well as others were entertained. Physical examination findings: As above. Non-focal. ER treatment provided: Reglan, Benadryl, Toradol On reassessment the patient felt better. Diagnostics interpreted by me: Deferred This appears to be consistent with migraine. Patient is a history of migraines. He has been seen in this ER before. Normal imaging in the past. He was neurovascularly and neurologically intact. He was well-appearing. No signs of meningitis. He was advised to rest, stay well-hydrated and take medications as directed. He was advised to follow-up family care in a few days or here in the ER sooner for headache, fevers, vomiting, weakness, worsening signs or symptoms or as needed. He ambulated out of the ER without difficulties. By the evaluation outlined above emergent etiologies such as meningitis, sinusitis, CO exposure, ICH, SAH, infection, temporal arteritis, tumor, sinus thrombosis, arterial dissection, as well as others were deemed relatively unlikely. The pt informed about the findings as listed above. All questions were answered and pleased with the treatment. Return instructions were outlined and the patient was discharged in stable condition. Referral: The patient was referred back to their primary care physician for follow-up in 2 to 3 days for a recheck of the current condition. The chart was completed utilizing [employer] Speech voice recognition software. Grammatical errors, random word insertions, pronoun errors, and incomplete sentences are an occassional consequence of this system due to software limitations, ambient noise, and hardware issues. Any formal questions or concerns about the content, text, or information contained within the body of this dictation should be directly addressed to the physician distribution center assistant for clarification. Medical Decision As above Head Trauma GCS Score: 15 Medication Reconcilliation Current Medication List: was personally reviewed by me Blood Pressure Screening Patient's blood pressure: Elevated blood pressure Blood pressure disposition: Elevated BP felt to be situational Impression Primary Impression: Migraine Departure Information Dispostion Home / Self-Care Condition GOOD Referrals Barbara MIXON M.D. (PCP) Patient Instructions My [facility] Additional Instructions DO NOT drive, drink alcohol, operate machinery, or perform dangerous activities today. You were given medications in the ER that can affect your ability to safely function or operate a vehicle. Rest today in a quiet, peaceful, dark environment and get a full 8-10 hrs of sleep tonight. Avoid loud noises, smoke/smoking, alcohol, bright lights, stress, or physical exertion today to minimize the chance the headache may return. Continue current medications. Ibuprofen(Motrin, Advil) may be used for fever or pain. Use 600mg every six hours as needed. Take with food. Avoid using more than 2400mg in a 24 hour period. Do not use 2400mg per day for more than three consecutive days without physician direction. Prolonged inappropriate use can lead to stomach upset or ulcers. (AND/OR) Acetaminophen(Tylenol) may be used for fever or pain. Use 1000mg every six hours as needed. Avoid using more than 3000mg in a 24 hour period. Return to the ER for passing out, worsening headache, vision problems, neck stiffness/pain, fevers, vomiting, worsening of your condition, or as needed. Follow up with your primary physician and/or a neurologist in 2-3 days for a recheck of your current condition. Problem Qualifiers Primary Impression: Migraine Migraine type: without aura Status migrainosus presence: without status migrainosus Intractability: not intractable Qualified Codes: G43.009 - Migraine without aura, not intractable, without status migrainosus
[2017-12-20 04:45] VITALS: BP 112/74; PULSE 61; O2SAT 97
== END 2017-12-20 04:46 | disposition home or self-care (01) ==
LOC: C.EDB 03:06
DX: G43.009 Migraine without aura, not intractable, without status migrainosus (principal); F17.210 Nicotine dependence, cigarettes, uncomplicated; J45.909 Unspecified asthma, uncomplicated; K21.9 Gastro-esophageal reflux disease without esophagitis; Z80.9 Family history of malignant neoplasm, unspecified; Z79.899 Other long term (current) drug therapy